=== PATIENT | male | born 1965 | race African-American/Black ===

== ENCOUNTER 2020-05-26 11:01 | Inpatient (IN) | payer OTHER ==
--- OUTSIDE RECORDS SUMMARY | 2020-05-26 11:08 | XMS ---
:1965 [facility] Support Name Relationship Address Phone UE Unavailable Unavailable Unavailable SULLY CASTRO [address] [facility] [phone] [place] [address] Re-disclosure Warning The records that you are about to access may contain information from federally- assisted alcohol or drug abuse programs. If such information is present, then the following federally mandated warning applies: This information has been disclosed to you from records protected by federal confidentiality rules (42 CFR part 2). The federal rules prohibit you from making any further disclosure of this information unless further disclosure is expressly permitted by the written consent of the person to whom it pertains or as otherwise permitted by 42 CFR part 2. A general authorization for the release of medical or other information is NOT sufficient for this purpose. The Federal rules restrict any use of the information to criminally investigate or prosecute any alcohol or drug abuse patient.The records that you are about to access may contain highly sensitive health information, the redisclosure of which is protected by Article 27-F of the [facility] Public Health law. If you continue you may haveaccess to information: Regarding HIV / AIDS; Provided by facilities licensed or operated by the [facility] Office of Mental Health; or Provided by the [facility] Office for People With Developmental Disabilities. If such information is present, then the following [facility] mandated warning applies: This information has been disclosed to you from confidential records which are protected by state law. State law prohibits you from making any further disclosure of this information without the specific written consent of the person to whom it pertains, or as otherwise permitted by law. Any unauthorized further disclosure in violation of state law may result in a fine or [place] health [facility] sentence or both. A general authorization for the release of medical or other information is NOT sufficient authorization for further disclosure. Insurance Providers Payer name Policy type Policy ID Covered Covered democrat's Policy P nhi / Coverage democrat ID relationship to Diamond Inf ormation type diamond BEACON MET [id number] PLUS [place]ARE [place] [id number] SP [id number] Choice
--- NOTE | 2020-05-26 14:34 | BHS.RME ---
Substance Use & Tx History - Substance Use History Alcohol Substance amount: 2 to 3 pints of vodka Frequency of use: Daily Substance route: Oral Date of Last Use: 05/26/20 Marijuana/Hashish Substance amount: 25 $ Frequency of use: More than 3 times per week Substance route: Smoking Date of Last Use: 05/24/20 - Last Treatment Date of last treatment: 05/24/20 to 05/25/20 did not recall facility,not completed Where was last treatment: Detox Physical/Psych/Mental Status - Behavior Eye Contact: Normal - Cooperativeness Cooperativeness: Cooperative - Thinking Thought Processes: Logical Thought content: Future oriented - Physical Health Problems Is patient presently having any pain?: No Does patient presently have any injuries (include location): No Does patient currently have a fever: No CIWA Nausea/Vomitin Muscle Tremors: 3 Anxiety: 3 Agitation: 2 Paroxysmal Sweats: 1-Minimal Palms Moist Orientation: 0-Oriented Tacttile Disturbances: 1-Very Mild Itch/Numbness Auditory Disturbances: 0-None Visual Disturbances: 0-None Headache: 2-Mild CIWA-Ar Total Score: 15
--- NOTE | 2020-05-26 14:48 | HP ---
CIWA Score Nausea/Vomitin Muscle Tremors: 3 Anxiety: 3 Agitation: 2 Paroxysmal Sweats: 1-Minimal Palms Moist Orientation: 0-Oriented Tacttile Disturbances: 1-Very Mild Itch/Numbness Auditory Disturbances: 0-None Visual Disturbances: 0-None Headache: 2-Mild CIWA-Ar Total Score: 15 - Admission Criteria OASAS Guidelines: Admission for Medically Managed Detox: Requires at least one of the followin. CIWA greater than 12 2. Seizures within the past 24 hours 3. Delirium tremens within the past 24 hours 4. Hallucinations within the past 24 hours 5. Acute intervention needed for co occurring medical disorder 6. Acute intervention needed for co occurring psychiatric disorder 7. Severe withdrawal that cannot be handled at a lower level of care (continued vomiting, continued diarrhea, abnormal vital signs) requiring intravenous medication and/or fluids 8. Admitting History and Physical - Admission Chief Complaint: i need help to stop drinking alcohol and marijuana History of Present Illness: this 55 years male with alcohol and marijuana dependence seeking detox History Source: Patient Limitations to Obtaining History: No Limitations - Past Medical History Cardiovascular: Yes: HTN, Hyperlipdemia Pulmonary: Yes: COPD Additional Past Medical History: ambulation with cane - Past Surgical History Additional Past Surgical History: right chest tue [facility] 01/[facility] lumbar electrical stimulator implanted [facility] in 10/2019 - Smoking History Smoking history: Current every day smoker Have you smoked in the past 12 months: Yes Aproximately how many cigarettes per day: 10 - Alcohol/Substance Use Hx Alcohol Use: Yes History of Substance Use: reports: Marijuana - Social History Usual Living Arrangement: Yes: With Significant Other Do you think of yourself as: Straight/Heterosexual Occupation: on disability Other Social History: on disability,no legal gage,ambulation with cane Admission ROS [facility] - HPI Chief Complaint: i need help to sto drinking alcohol and marijuana History of Present Illness: this 55 years old male with alcohol and marijuana dependence seeking detox ,withdrawal symptom, seeking help Exam Limitations: No Limitations - Ebola screening Have you traveled outside of the country in the last 21 days: No Have you had contact with anyone from an Ebola affected area: No Have you been sick,other than usual withdrawal symptoms: No Do you have a fever: No - Review of Systems Constitutional: Malaise, Night Sweats, Changes in sleep, Weakness EENT: reports: Nose Congestion Respiratory: reports: No Symptoms reported, Other (copd) Cardiac: reports: No Symptoms Reported GI: reports: Nausea, Poor Appetite, Abdominal cramping : reports: No Symptoms Reported Musculoskeletal: reports: Back Pain, Muscle Pain Integumentary: reports: Dryness Neuro: reports: Tremors Endocrine: reports: No Symptoms Reported Hematology: reports: No Symptoms Reported Psychiatric: reports: No Sypmtoms Reported, Judgement Intact, Mood/Affect Appropiate, Orientated x3 Other Systems: Reviewed and Negative Patient History - Patient Medical History Hx Anemia: No Hx Asthma: No Hx Chronic Obstructive Pulmonary Disease (COPD): Yes (on albuterol and symbicor t) Hx Cancer: No Hx Cardiac Disorders: No Hx Congestive Heart Failure: No Hx Hypertension: Yes (on med) Hx Hypercholesterolemia: Yes (on med) Hx Pacemaker: No HX Cerebrovascular Accident: No Hx Seizures: No Hx Dementia: No Hx Diabetes: No Hx Gastrointestinal Disorders: No Hx Liver Disease: No Hx Genitourinary Disorders: No Hx Sexually Transmitted Disorders: No Hx Renal Disease (ESRD): No Hx Thyroid Disease: No Hx Human Immunodeficiency Virus (HIV): No (last 10/2019) Hx Hepatitis C: No Hx Depression: No Hx Suicide Attempt: No Hx Bipolar Disorder: No Other Medical History: no sucicidal,no homicidal,spontaneus pnumothrax right chest tube in 02/16, - Patient Surgical History Hx Lung Surgery: Yes (chest tube insertion in 01/2019) Other Surgical History: implanted spinal cord stimulator in 10/2019 - PPD History Previous Implant?: Yes Documented Results: Negative w/o proof Implanted On Prior R Admission?: No PPD to be Administered?: Yes - Smoking Cessation Smoking history: Current every day smoker Have you smoked in the past 12 months: Yes Cigars Per Day: 10 Hx Chewing Tobacco Use: No Initiated information on smoking cessation: Yes 'Breaking Loose' booklet given: 05/26/20 - Substance & Tx. History Hx Alcohol Use: Yes Hx Substance Use: Yes Substance Use Type: Alcohol, Marijuana Hx Substance Use Treatment: Yes (05/24/20 to 05/25/20 did not recall facility in [place],but left ,not complet) - Substances abused Alcohol Substance route: Oral Frequency: Daily Amount used: 3 pints of vodka Age of first use: 14 Date of last use: 05/26/20 Marijuana/Hashish Substance route: Smoking Frequency: 3-6 times per week Amount used: 25$ Age of first use: 14 Date of last use: 05/24/20 Admission Physical Exam [facility] - Vital Signs Vital Signs: bp 132/96,p104,r18,t97.2,marycarmen 0.059,pulse ox 100% - Physical General Appearance: Yes: Moderate Distress, Tremorous, Irritable, Sweating, Anxious HEENTM: Yes: Normal ENT Inspection, [place], Pharynx Normal Respiratory: Yes: Lungs Clear, Normal Breath Sounds, No Respiratory Distress (history of copd), Other (scar right chest post chest tube insertion for spontaneous pneumothorax) Neck: Yes: Supple, Trachea in good position Breast: Yes: Within Normal Limits Cardiology: Yes: Within Normal Limits, Regular Rhythm, Regular Rate, S1, S2 Abdominal: Yes: Within Normal Limits, Normal Bowel Sounds, Non Tender, Flat, Soft Genitourinary: Yes: Within Normal Limits Back: Yes: Surgical Scar (implanted electrical stimjulator left lumbar area) Musculoskeletal: Yes: Back pain, Muscle Pain Extremities: Yes: Tremors 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, Fully Oriented, Alert, Motor Strength 5/5 Integumentary: Yes: Dry Lymphatic: Yes: Within Normal Limits - Diagnostic (1) Alcohol dependence with uncomplicated withdrawal Current Visit: Yes Status: Acute (2) Cannabis dependence Current Visit: Yes Status: Acute (3) Use of cane as ambulatory aid Current Visit: Yes Status: Acute (4) Low back pain Current Visit: Yes Status: Acute (5) Chronic left hip pain Current Visit: Yes Status: Acute (6) COPD (chronic obstructive pulmonary disease) Current Visit: Yes Status: Acute (7) History of chest tube placement Current Visit: No Status: Resolved Comment: right chest tube insertion for spontaneous pneumothorax (8) Weight loss Current Visit: Yes Status: Acute Cleared for Admission [facility] - Detox or Rehab [facility] Level of Care: Medically Managed (history of implanted electriacl stimulator left lumbar area) Detox Regimen/Protocol: Librium Inpatient Rehab Admission - Rehab Decision to Admit Inpatient rehab admission?: No
[2020-05-26 15:13] VITALS: BMI 19.1
[2020-05-26] MEDS ORDERED: MAG HYDROX/AL HYDROX/SIMETH 30 ML UNIT-DOSE CUP PO PRN (15:18)
[2020-05-26] MEDS ORDERED: BISMUTH SUBSALICYLATE 524 MG/30 ML UD PO PRN (15:18)
[2020-05-26] MEDS ORDERED: MAGNESIUM HYDROX 2400MG/30ML ORAL SUSPENSION 30 ML CUP PO PRN (15:18)
[2020-05-26] MEDS ORDERED: ONDANSETRON *ODT* 4 MG TABLET SL PRN (15:18)
[2020-05-26] MEDS ORDERED: MAGNESIUM CITRATE 300 ML BOTTLE PO PRN (15:18)
[2020-05-26] MEDS ORDERED: ACETAMINOPHEN 325 MG TABLET (FP) PO PRN ×2 (15:18)
[2020-05-26] MEDS ORDERED: MENTHOL/PHENOL 1 EACH UD MM PRN (15:18)
[2020-05-26] MEDS ORDERED: IBUPROFEN 400 MG TABLET (FP) PO PRN (15:18)
[2020-05-26] MEDS ORDERED: chlordiazePOXIDE HCL 25 MG CAPSULE PO PRN (15:18)
[2020-05-26] MEDS ORDERED: ALBUTEROL SO4 HFA INHALER IH PRN (16:10)
[2020-05-26] MEDS ORDERED: NICOTINE POLACRILEX 2 MG GUM BUC PRN (17:00)
[2020-05-26] MEDS: chlordiazePOXIDE HCL 25 MG CAPSULE PO SCH ×2 (18:14→22:55)
[2020-05-26] MEDS: hydrOXYzine PAMOATE 25 MG CAPSULE (FP) PO SCH ×2 (18:14→22:55)
[2020-05-26] MEDS: NICOTINE 21 MG/24 HOURS TOPICAL PATCH TD SCH (18:14)
[2020-05-26] MEDS: THIAMINE HCL 100 MG TABLET (FP) PO SCH (22:56)
[2020-05-26] MEDS: MELATONIN 5 MG TABLETS PO SCH (22:56)
[2020-05-26] MEDS: BUDESONIDE/FORMETEROL FUMARATE 160/4.5 mcg INHALER IH SCH (22:56)
[2020-05-27] MEDS: chlordiazePOXIDE HCL 25 MG CAPSULE PO SCH ×4 (05:53→22:26)
[2020-05-27] MEDS: hydrOXYzine PAMOATE 25 MG CAPSULE (FP) PO SCH ×5 (05:54→22:26)
[2020-05-27] MEDS: PRENATAL VITAMINS W/ FOLIC ACID TABLET (FP) PO SCH (10:37)
[2020-05-27] MEDS: BUDESONIDE/FORMETEROL FUMARATE 160/4.5 mcg INHALER IH SCH ×2 (10:37→22:25)
[2020-05-27] MEDS: NICOTINE 21 MG/24 HOURS TOPICAL PATCH TD SCH (10:37)
[2020-05-27 12:01] LABS: HEMATOCRIT 30.9 % (35.4-49); HEMOGLOBIN 10.3 GM/dL (11.7-16.9); MCH 32.8 pg (25.7-33.7); MCHC 33.4 g/dl (32.0-35.9); MEAN CELL VOLUME 98.3 fl (80-96); PLATELET COUNT 412 K/MM3 (134-434); RBC 3.14 M/mm3 (4.00-5.60); RDW 14.4 % (11.9-15.9); WHITE BLOOD COUNT 7.5 K/mm3 (4.0-10.0)
[2020-05-27 12:08] LABS: ALBUMIN 3.2 g/dl (3.4-5.0); BILIRUBIN,TOTAL 0.3 mg/dL (0.2-1); BLOOD UREA NITROGEN 10.4 mg/dL (7-18); CALCIUM 8.6 mg/dL (8.5-10.1); TOT PROT 6.6 g/dl (6.4-8.2)
[2020-05-27] MEDS ORDERED: MASKS NR ONE (12:12)
--- NOTE | 2020-05-27 12:38 | PN ---
[facility] CIWA - CIWA Score Nausea/Vomitin-No Nausea/No Vomiting Muscle Tremors: 2 Anxiety: 2 Agitation: 2 Paroxysmal Sweats: 2 Orientation: 0-Oriented Tacttile Disturbances: 0-None Auditory Disturbances: 0-None Visual Disturbances: 1-Very Mild Sensitivity Headache: 2-Mild CIWA-Ar Total Score: 11 S Progress Note (SOAP) Subjective: 55 years old male was admitted on 05/26/20 for alcohol withdrawal sx management [facility] ambulating with cane bmi 19.1 ensure supplement tid with meals 120ml Objective: 05/27/20 12:48 Vital Signs - 24 hr 05/26/20 05/26/20 05/26/20 15:11 15:47 16:15 Temperature 97.2 F L 97.3 F L Pulse Rate 104 H 106 H Respiratory 18 18 Rate Blood Pressure 132/96 128/90 O2 Sat by Pulse 100 Oximetry (%) 05/26/20 05/27/20 05/27/20 20:31 05:49 08:58 Temperature 97.1 F L 97.2 F L 97.8 F Pulse Rate 106 H 96 H 106 H Respiratory 18 18 18 Rate Blood Pressure 105/75 111/77 123/91 O2 Sat by Pulse 100 100 Oximetry (%) Laboratory Tests 05/27/20 05/27/20 05/27/20 07:30 07:30 07:30 WBC 7.5 RBC 3.14 L Hgb 10.3 L Hct 30.9 L MCV 98.3 H MCH 32.8 MCHC 33.4 RDW 14.4 Plt Count 412 MPV 7.0 L Sodium 141 Potassium 4.0 Chloride 104 Carbon Dioxide 29 Anion Gap 8 BUN 10.4 Creatinine 1.0 Est GFR (CKD-EPI)AfAm 97.77 Est GFR (CKD-EPI)NonAf 84.35 Random Glucose 100 Calcium 8.6 Total Bilirubin 0.3 AST 20 ALT 15 Alkaline Phosphatase 88 Total Protein 6.6 Albumin 3.2 L Syphilis Serology Non-reactive lab notedcovid pending 05/27/20 12:52 Assessment: 05/27/20 12:53 alcohol withdrawal Plan: librium regiment
--- NOTE | 2020-05-27 15:11 | EKG ---
Test Reason : Blood Pressure : / mmHG Vent. Rate : 092 BPM Atrial Rate : 092 BPM P-R Int : 160 ms QRS Dur : 086 ms QT Int : 366 ms P-R-T Axes : 063 051 072 degrees QTc Int : 452 ms NORMAL SINUS RHYTHM MINIMAL VOLTAGE CRITERIA FOR LVH, MAY BE NORMAL VARIANT BORDERLINE ECG NO PREVIOUS ECGS AVAILABLE Confirmed by MD Rodrigues Daniel ([id number]) on 05/27/2020 3:11:09 PM Referred By: Confirmed By:Adebayo Rodrigues MD
[2020-05-27 17:11] LABS: URINE APPEARANCE CLEAR; URINE BILIRUBIN NEGATIVE (NEGATIVE); URINE COLOR YELLOW; URINE GLUCOSE (UA) NEGATIVE (NEGATIVE); URINE KETONE NEGATIVE (NEGATIVE); URINE LEUK ESTERASE NEGATIVE (NEGATIVE); URINE NITRITE NEGATIVE (NEGATIVE); URINE PROTEIN NEGATIVE (NEGATIVE); URINE UROBILINOGEN 0.2 mg/dL (0.2-1.0)
[2020-05-27] MEDS: MELATONIN 5 MG TABLETS PO SCH (22:25)
[2020-05-27] MEDS: THIAMINE HCL 100 MG TABLET (FP) PO SCH (22:26)
[2020-05-27] MEDS: METHOCARBAMOL 500 MG TABLET PO PRN (22:27)
[2020-05-28] MEDS: METHOCARBAMOL 500 MG TABLET PO PRN (07:09)
[2020-05-28] MEDS: hydrOXYzine PAMOATE 25 MG CAPSULE (FP) PO SCH ×5 (07:11→22:31)
[2020-05-28] MEDS: chlordiazePOXIDE HCL 25 MG CAPSULE PO SCH ×4 (07:15→22:31)
[2020-05-28] MEDS: NICOTINE 21 MG/24 HOURS TOPICAL PATCH TD SCH (10:14)
[2020-05-28] MEDS: BUDESONIDE/FORMETEROL FUMARATE 160/4.5 mcg INHALER IH SCH ×2 (10:14→22:32)
[2020-05-28] MEDS: PRENATAL VITAMINS W/ FOLIC ACID TABLET (FP) PO SCH (10:14)
--- NOTE | 2020-05-28 11:12 | PN ---
[facility] CIWA - CIWA Score Nausea/Vomitin-Mild Nausea/No Vomiting Muscle Tremors: 1-None Visible, but [place] Anxiety: 1-Mildly Anxious Agitation: 1-Slight > Activity Paroxysmal Sweats: 1-Minimal Palms Moist Orientation: 1-Uncertain about Date Tacttile Disturbances: 0-None Auditory Disturbances: 0-None Visual Disturbances: 1-Very Mild Sensitivity Headache: 1-Very Mild CIWA-Ar Total Score: 8 S Progress Note (SOAP) Subjective: 55 years old male was admitted on 05/26/20 for alcohol withdrawal sx management treating with librium detox regiment ambulating with cane slow steady feels better today ate breakfast in room tolerated ensure well Objective: 05/28/20 11:15 Vital Signs - 24 hr 05/27/20 05/27/20 05/27/20 12:29 16:52 20:31 Temperature 97.1 F L 97.5 F L 97.1 F L Pulse Rate 95 H 103 H 108 H Respiratory 18 18 18 Rate Blood Pressure 132/94 123/62 118/87 O2 Sat by Pulse 100 98 Oximetry (%) 05/28/20 05/28/20 06:14 09:00 Temperature 98.0 F 96.8 F L Pulse Rate 52 L 95 H Respiratory 18 17 Rate Blood Pressure 100/59 L 116/90 O2 Sat by Pulse 99 99 Oximetry (%) Laboratory Tests 05/27/20 05/27/20 05/27/20 07:30 07:30 07:30 WBC 7.5 RBC 3.14 L Hgb 10.3 L Hct 30.9 L MCV 98.3 H MCH 32.8 MCHC 33.4 RDW 14.4 Plt Count 412 MPV 7.0 L Sodium 141 Potassium 4.0 Chloride 104 Carbon Dioxide 29 Anion Gap 8 BUN 10.4 Creatinine 1.0 Est GFR (CKD-EPI)AfAm 97.77 Est GFR (CKD-EPI)NonAf 84.35 Random Glucose 100 Calcium 8.6 Total Bilirubin 0.3 AST 20 ALT 15 Alkaline Phosphatase 88 Total Protein 6.6 Albumin 3.2 L Urine Color Urine Appearance Urine pH Ur Specific [place] Urine Protein Urine Glucose (UA) Urine Ketones Urine Blood Urine Nitrite Urine Bilirubin Urine Urobilinogen Ur Leukocyte Esterase Syphilis Serology Non-reactive 05/27/20 Unknown WBC RBC Hgb Hct MCV MCH MCHC RDW Plt Count MPV Sodium Potassium Chloride Carbon Dioxide Anion Gap BUN Creatinine Est GFR (CKD-EPI)AfAm Est GFR (CKD-EPI)NonAf Random Glucose Calcium Total Bilirubin AST ALT Alkaline Phosphatase Total Protein Albumin Urine Color Yellow Urine Appearance Clear Urine pH 7.0 Ur Specific [place] 1.019 Urine Protein Negative Urine Glucose (UA) Negative Urine Ketones Negative Urine Blood Negative Urine Nitrite Negative Urine Bilirubin Negative Urine Urobilinogen 0.2 Ur Leukocyte Esterase Negative Syphilis Serology 05/28/20 11:16 covid pending Assessment: 05/28/20 11:16 alcohol withdrawal Plan: librium regiment
[2020-05-28] MEDS: THIAMINE HCL 100 MG TABLET (FP) PO SCH (22:31)
[2020-05-28] MEDS: MELATONIN 5 MG TABLETS PO SCH (22:31)
[2020-05-29] MEDS ORDERED: chlordiazePOXIDE HCL 10 MG CAPSULE PO PRN
[2020-05-29] MEDS: hydrOXYzine PAMOATE 25 MG CAPSULE (FP) PO SCH ×5 (06:51→22:12)
[2020-05-29] MEDS: chlordiazePOXIDE HCL 10 MG CAPSULE PO SCH ×4 (06:51→22:12)
[2020-05-29] MEDS: NICOTINE 21 MG/24 HOURS TOPICAL PATCH TD SCH (10:16)
[2020-05-29] MEDS: BUDESONIDE/FORMETEROL FUMARATE 160/4.5 mcg INHALER IH SCH ×2 (10:16→22:12)
[2020-05-29] MEDS: PRENATAL VITAMINS W/ FOLIC ACID TABLET (FP) PO SCH (10:17)
--- NOTE | 2020-05-29 10:47 | PN ---
S CIWA - CIWA Score Nausea/Vomitin-Mild Nausea/No Vomiting Muscle Tremors: 2 Anxiety: 2 Agitation: 2 Paroxysmal Sweats: No Perspiration Orientation: 0-Oriented Tacttile Disturbances: 0-None Auditory Disturbances: 0-None Visual Disturbances: 0-None Headache: 1-Very Mild CIWA-Ar Total Score: 8 S Progress Note (SOAP) Subjective: alert,irritable,anxious,interrupted sleep,aching pain Objective: 05/29/20 16:00 Vital Signs Temperature 97.5 F L 05/29/20 12:30 Pulse Rate 102 H 05/29/20 12:30 Respiratory Rate 16 05/29/20 12:30 Blood Pressure 96/59 L 05/29/20 12:30 O2 Sat by Pulse Oximetry (%) 100 05/29/20 12:30 Laboratory Last Values WBC 7.5 K/mm3 (4.0-10.0) 05/27/20 07:30 RBC 3.14 M/mm3 (4.00-5.60) L 05/27/20 07:30 Hgb 10.3 GM/dL (11.7-16.9) L 05/27/20 07:30 Hct 30.9 % (35.4-49) L 05/27/20 07:30 MCV 98.3 fl (80-96) H 05/27/20 07:30 MCH 32.8 pg (25.7-33.7) 05/27/20 07:30 MCHC 33.4 g/dl (32.0-35.9) 05/27/20 07:30 RDW 14.4 % (11.9-15.9) 05/27/20 07:30 Plt Count 412 K/MM3 (134-434) 05/27/20 07:30 MPV 7.0 fl (7.5-11.1) L 05/27/20 07:30 Sodium 141 mmol/L (136-145) 05/27/20 07:30 Potassium 4.0 mmol/L (3.5-5.1) 05/27/20 07:30 Chloride 104 mmol/L (98-107) 05/27/20 07:30 Carbon Dioxide 29 mmol/L (21-32) 05/27/20 07:30 Anion Gap 8 MMOL/L (8-16) 05/27/20 07:30 BUN 10.4 mg/dL (7-18) 05/27/20 07:30 Creatinine 1.0 mg/dL (0.55-1.3) 05/27/20 07:30 Est GFR (CKD-EPI)AfAm 97.77 05/27/20 07:30 Est GFR (CKD-EPI)NonAf 84.35 05/27/20 07:30 Random Glucose 100 mg/dL (74-106) 05/27/20 07:30 Calcium 8.6 mg/dL (8.5-10.1) 05/27/20 07:30 Total Bilirubin 0.3 mg/dL (0.2-1) 05/27/20 07:30 AST 20 U/L (15-37) 05/27/20 07:30 ALT 15 U/L (13-61) 05/27/20 07:30 Alkaline Phosphatase 88 U/L (45-117) 05/27/20 07:30 Total Protein 6.6 g/dl (6.4-8.2) 05/27/20 07:30 Albumin 3.2 g/dl (3.4-5.0) L 05/27/20 07:30 Urine Color Yellow 05/27/20 Unknown Urine Appearance Clear 05/27/20 Unknown Urine pH 7.0 (5.0-8.0) 05/27/20 Unknown Ur Specific [place] 1.019 (1.010-1.035) 05/27/20 Unknown Urine Protein Negative (NEGATIVE) 05/27/20 Unknown Urine Glucose (UA) Negative (NEGATIVE) 05/27/20 Unknown Urine Ketones Negative (NEGATIVE) 05/27/20 Unknown Urine Blood Negative (NEGATIVE) 05/27/20 Unknown Urine Nitrite Negative (NEGATIVE) 05/27/20 Unknown Urine Bilirubin Negative (NEGATIVE) 05/27/20 Unknown Urine Urobilinogen 0.2 mg/dL (0.2-1.0) 05/27/20 Unknown Ur Leukocyte Esterase Negative (NEGATIVE) 05/27/20 Unknown Syphilis Serology Non-reactive (NONREACTIVE) 05/27/20 07:30 COVID-19 (TABATHA) Not detected 05/26/20 15:30 Assessment: 05/29/20 16:01 withdrawal symptom Plan: continue detox librium regimen
[2020-05-29 21:26] VITALS: BP 131/86; PULSE 99; TEMP 97.3
[2020-05-29] MEDS: THIAMINE HCL 100 MG TABLET (FP) PO SCH (22:12)
[2020-05-29] MEDS: MELATONIN 5 MG TABLETS PO SCH (22:12)
[2020-05-30] MEDS ORDERED: chlordiazePOXIDE HCL 10 MG CAPSULE PO SCH (05:00)
[2020-05-30] MEDS: hydrOXYzine PAMOATE 25 MG CAPSULE (FP) PO SCH (07:25)
--- NOTE | 2020-05-30 08:47 | DS ---
[facility] Detox Discharge Summary Admission Date: 05/26/20 Discharge Date: 05/30/20 - History Present History: Alcohol Dependence, Cannabis Dependence Additional Comments: alert,oriented x 3 ambulation on the unit lung clear on auscultation bilaterally no abdominal pain no edema of legs no withdrawal symptom stable for discharge today declined rehab follow up with after care program out patient as arrangement has medication at home total time spending on discharge 35 minutes Pertinent Past History: chronic left hip pain chronic back pain history of chest tube insertion ambulation with cane - Physical Exam Results Vital Signs: Vital Signs Temperature 97.3 F L 05/29/20 20:27 Pulse Rate 99 H 05/29/20 20:27 Respiratory Rate 18 05/29/20 20:27 Blood Pressure 131/86 05/29/20 20:27 O2 Sat by Pulse Oximetry (%) 100 05/29/20 20:27 Pertinent Admission Physical Exam Findings: withdrawal signs and symptom Laboratory Last Values WBC 7.5 K/mm3 (4.0-10.0) 05/27/20 07:30 RBC 3.14 M/mm3 (4.00-5.60) L 05/27/20 07:30 Hgb 10.3 GM/dL (11.7-16.9) L 05/27/20 07:30 Hct 30.9 % (35.4-49) L 05/27/20 07:30 MCV 98.3 fl (80-96) H 05/27/20 07:30 MCH 32.8 pg (25.7-33.7) 05/27/20 07:30 MCHC 33.4 g/dl (32.0-35.9) 05/27/20 07:30 RDW 14.4 % (11.9-15.9) 05/27/20 07:30 Plt Count 412 K/MM3 (134-434) 05/27/20 07:30 MPV 7.0 fl (7.5-11.1) L 05/27/20 07:30 Sodium 141 mmol/L (136-145) 05/27/20 07:30 Potassium 4.0 mmol/L (3.5-5.1) 05/27/20 07:30 Chloride 104 mmol/L (98-107) 05/27/20 07:30 Carbon Dioxide 29 mmol/L (21-32) 05/27/20 07:30 Anion Gap 8 MMOL/L (8-16) 05/27/20 07:30 BUN 10.4 mg/dL (7-18) 05/27/20 07:30 Creatinine 1.0 mg/dL (0.55-1.3) 05/27/20 07:30 Est GFR (CKD-EPI)AfAm 97.77 05/27/20 07:30 Est GFR (CKD-EPI)NonAf 84.35 05/27/20 07:30 Random Glucose 100 mg/dL (74-106) 05/27/20 07:30 Calcium 8.6 mg/dL (8.5-10.1) 05/27/20 07:30 Total Bilirubin 0.3 mg/dL (0.2-1) 05/27/20 07:30 AST 20 U/L (15-37) 05/27/20 07:30 ALT 15 U/L (13-61) 05/27/20 07:30 Alkaline Phosphatase 88 U/L (45-117) 05/27/20 07:30 Total Protein 6.6 g/dl (6.4-8.2) 05/27/20 07:30 Albumin 3.2 g/dl (3.4-5.0) L 05/27/20 07:30 Urine Color Yellow 05/27/20 Unknown Urine Appearance Clear 05/27/20 Unknown Urine pH 7.0 (5.0-8.0) 05/27/20 Unknown Ur Specific [place] 1.019 (1.010-1.035) 05/27/20 Unknown Urine Protein Negative (NEGATIVE) 05/27/20 Unknown Urine Glucose (UA) Negative (NEGATIVE) 05/27/20 Unknown Urine Ketones Negative (NEGATIVE) 05/27/20 Unknown Urine Blood Negative (NEGATIVE) 05/27/20 Unknown Urine Nitrite Negative (NEGATIVE) 05/27/20 Unknown Urine Bilirubin Negative (NEGATIVE) 05/27/20 Unknown Urine Urobilinogen 0.2 mg/dL (0.2-1.0) 05/27/20 Unknown Ur Leukocyte Esterase Negative (NEGATIVE) 05/27/20 Unknown Syphilis Serology Non-reactive (NONREACTIVE) 05/27/20 07:30 COVID-19 (TABATHA) Not detected 05/26/20 15:30 Vital Signs Temperature 97.3 F L 05/29/20 20:27 Pulse Rate 99 H 05/29/20 20:27 Respiratory Rate 18 05/29/20 20:27 Blood Pressure 131/86 05/29/20 20:27 O2 Sat by Pulse Oximetry (%) 100 05/29/20 20:27 - Treatment Hospital Course: Detox Protocol Followed, Detoxed Safely, Responded well, Discharged Condition Good Patient has Accepted a Rehab Referral to: declined - Medication Discharge Medications: Ambulatory Orders Albuterol Sulfate Inhaler - [Ventolin Hfa Inhaler -] 1 - 2 inh PO QID PRN 05/26/20 Budesonide/Formeterol Fumarate [SYMBICORT 160/4.5mcg -] 1 inh PO DAILY 05/26/20 - Diagnosis (1) Alcohol dependence with uncomplicated withdrawal Status: Acute (2) Cannabis dependence Status: Acute (3) Use of cane as ambulatory aid Status: Acute (4) Low back pain Status: Acute (5) Chronic left hip pain Status: Acute (6) COPD (chronic obstructive pulmonary disease) Status: Acute (7) History of chest tube placement Status: Resolved (8) Weight loss Status: Acute - AMA Did Patient Leave Against Medical Advice: No
--- NOTE | 2020-05-30 08:47 | PN ---
[facility] CIWA - CIWA Score Nausea/Vomitin-No Nausea/No Vomiting Muscle Tremors: None Anxiety: 1-Mildly Anxious Agitation: 0-Normal Activity Paroxysmal Sweats: No Perspiration Orientation: 0-Oriented Tacttile Disturbances: 0-None Auditory Disturbances: 0-None Visual Disturbances: 0-None Headache: 0-None Present CIWA-Ar Total Score: 1 S Progress Note (SOAP) Subjective: alert,no complaint Objective: 05/30/20 18:44 Vital Signs Temperature 97.3 F L 05/29/20 20:27 Pulse Rate 99 H 05/29/20 20:27 Respiratory Rate 18 05/29/20 20:27 Blood Pressure 131/86 05/29/20 20:27 O2 Sat by Pulse Oximetry (%) 100 05/29/20 20:27 Assessment: 05/30/20 18:45 no withdrawal symptom Plan: stable for discharge today,follow up with after care program as arrangement,declined rehab
[2020-05-31] MEDS ORDERED: chlordiazePOXIDE HCL 10 MG CAPSULE PO ONE (05:00)
== END 2020-05-30 09:24 | disposition home or self-care (01) | DRG 897 ==
LOC: YASAS 11:01 → Y3N 15:22
PROVIDERS: ADMIT Allergy & Immunology; ATTEND Allergy & Immunology
PROC: HZ2ZZZZ Detoxification Services for Substance Abuse Treatment (ICD-10-PCS; principal; 2020-05-26)
DX: F10.230 Alcohol dependence with withdrawal, uncomplicated (principal); Z68.1 Body mass index [BMI] 19.9 or less, adult; F12.20 Cannabis dependence, uncomplicated; I10 Essential (primary) hypertension; E78.5 Hyperlipidemia, unspecified; J44.9 Chronic obstructive pulmonary disease, unspecified; M54.5 Low back pain; M25.552 Pain in left hip; G89.29 Other chronic pain; R63.4 Abnormal weight loss; Z99.89 Dependence on other enabling machines and devices; Z98.890 Other specified postprocedural states
CPT/HCPCS: 36415; 80053; 81003; 85027; 86780; 93005; 93010; U0003